=== PATIENT | female | born 1985 | race African-American/Black ===

== ENCOUNTER 2020-10-04 20:46 | Emergency (ER) | payer MEDICAID ==
[~2020-10-04] VITALS: Ht 165.1 cm; Wt 59.0 kg
--- NOTE | 2020-10-04 20:50 | NUR ---
ED Nurse Note: Pt brought in by ambulance [address] c/o headache, unk time. Denies trauma; n/v/d. Pt yelling with staff and not wearing mask.
[2020-10-04 21:25] VITALS: BP 122/90
--- NOTE | 2020-10-04 21:34 | Emergency Room Report ---
History of Present Illness General Chief Complaint: Headache Source: Patient, EMS Present Illness HPI Disclaimer: Please note that this report is being documented using [employer] technology. This can lead to erroneous entry secondary to incorrect interpretation by the dictating instrument. HPI: 35-year-old female with no reported medical history presents for evaluation. Initially complained of headache to EMS. She was brought in by ambulance from the street and is homeless. She states she "does not feel well" but does not provide specific details. She reports headache but provides no other information regarding symptom onset, quality, character or intensity. She denies cough, fever, shortness of breath, diarrhea, nausea, vomiting, chest pain. She just states she feels tired and wants to sleep in the emergency department tonight. She is asking for food. She wants to be tested for COVID- 19. She does not know whether or not she has been exposed to it. Denies drug or alcohol use. States she does not take any medications regularly. PMH: Denied PSH: Denied Allergies: Denied Social Hx: Denied Allergies: Coded Allergies: No Known Allergies (Unverified , 10/04/20) COVID-19 Screening Contact w/high risk pt: No Experienced COVID-19 symptoms?: No COVID-19 Testing performed ANIMAL TRAINER: No Review of Systems All Other Systems: negative except mentioned in HPI Physical Exam Vital Signs Date Time Temp Pulse Resp B/P (MAP) Pulse Ox O2 Delivery O2 Flow Rate FiO2 10/04/20 20:45 98.2 86 16 122/90 (101) 98 Room Air General: Awake and alert, no acute distress HEENT: NC/AT. EOMI. Speaking in full sentences. No stridor. Cardiovascular: RRR. S1 and S2 normal. No murmur appreciated Resp: Normal work of breathing. No cough, or wheezing appreciated Skin: Intact. No abrasions, laceration or rash over the exposed skin MSK: Normal tone and bulk. Moving all extremities. No obvious deformity. Neuro: Awake and alert. Mentating appropriately though withholding and nonspecific regarding information on present illness. Medical Decision Making Homeless Attestation Patient is homeless. Patient has been medically screened and is stable for outpatient follow up Diagnostic Impression: Primary Impression: General medical exam ER Course Is a 35-year-old female brought in by EMS initially complaining of headache complaining of generalized fatigue and asking for a place to sleep. She is requesting food. She arrives with stable vital signs in no distress. She is very vague regarding her complaints though I did offer information on outpatient testing for COVID-19 though again she states she does not know a specific exposure event and has no shortness of breath or other specific symptoms regarding COVID-19 at this time. Unable to offer in-house testing due to limited supply of COVID-19 testing strips. She is otherwise well-appearing with stable vital signs and do not believe she requires emergent labs or imaging at this time. Patient was provided with food and provided with resources to follow-up on an outpatient basis. Instructed to return new or worsening symptoms. She understands and agrees with this treatment plan. Last Vital Signs Date Time Temp Pulse Resp B/P (MAP) Pulse Ox O2 Delivery O2 Flow Rate FiO2 10/04/20 20:45 98.2 86 16 122/90 (101) 98 Room Air Disposition: HOME, SELF-CARE Condition: Stable Referrals: [facility] Additional Instructions: Call the COVID-19 testing center is provided in your discharge paperwork po ssible to arrange for outpatient testing. You may require reevaluation or further testing per your doctor's recommendations. Follow-up with PMD or clinic listed here in your discharge paperwork. Limit your contact with others as much as possible over the next 14 days. Stay minimum of 6 feet away from others, do not attend large gatherings and clean and disinfect all heavily used surfaces. Follow CDC guidelines for isolation and infection prevention. If you experience any new or worsening symptoms discussed with your doctor or return to the emergency department for reevaluation. Wilbert Barrientos MD Oct 04, 2020 21:34
[2020-10-04 21:45] VITALS: BP 122/90
--- NOTE | 2020-10-04 21:45 | NUR ---
ER DISCHARGE NOTE: Patient is cleared to be discharged per ERMD, pt is aox4, on room air, with stable vital signs. pt was given dc instructions, pt was able to verbalize understanding, pt id band removed without complications. pt is able to ambulate with steady gait. pt took all belongings.
== END 2020-10-04 21:45 | disposition home or self-care (01) ==
LOC: EDBD 20:46 → EMR 21:05
DX: R51.9 Headache, unspecified (principal)
CPT/HCPCS: 99281